=== PATIENT | female | born 2000 | race Caucasian/White ===

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

== ENCOUNTER 2018-05-01 14:37 | Emergency (ER) | payer OTHER ==
[2018-05-01 15:27] VITALS: BP 107/65
== END 2018-05-01 17:07 | disposition left against medical advice (07) ==
LOC: UCEAST 14:37
DX: J02.9 Acute pharyngitis, unspecified (principal); Z53.21 Procedure and treatment not carried out due to patient leaving prior to being seen by health care provider
CPT/HCPCS: 87651